=== PATIENT | male | born 1950 | race Caucasian/White ===

== ENCOUNTER 2021-12-30 09:50 | Emergency (ER) | payer OTHER, MEDICARE ==
[~2021-12-30] VITALS: Ht 172.7 cm; Wt 88.5 kg
[2021-12-30] MEDS ORDERED: GUAIFENESIN SUGAR-FREE 100 MG/5 ML UDCUP PO STA (10:28)
[2021-12-30] MEDS ORDERED: DEXAMETHASONE SOD PHOSPHATE 4 MG/ML 1ML VIAL IM STA (10:28)
[2021-12-30] MEDS ORDERED: LORA10TA7 PO (10:36)
[2021-12-30] MEDS ORDERED: FLUT16H NASAL (10:36)
[2021-12-30 10:41] VITALS: BP 157/82
== END 2021-12-30 10:43 | disposition home or self-care (01) ==
LOC: EDH 09:50
DX: J32.9 Chronic sinusitis, unspecified (principal); Z20.822 Contact with and (suspected) exposure to COVID-19
CPT/HCPCS: 99284; 71045; 87635; 87880; 87804 ×2; 96372; J1100; C9803

== ENCOUNTER 2022-01-13 10:09 | Emergency (ER) | payer OTHER ==
[~2022-01-13] VITALS: Ht 167.6 cm; Wt 88.5 kg
[~2022-01-13 10:09] MED LIST: FLUT16H NASAL; LORA10TA7 PO
[2022-01-13 10:58] VITALS: BP 159/85
[2022-01-13] MEDS ORDERED: SOLU-MEDROL 125MG VIAL IVP ONE (11:30)
[2022-01-13] MEDS ORDERED: METH4TAB3 PO (13:34)
== END 2022-01-13 13:49 | disposition home or self-care (01) ==
LOC: EDH 10:09
DX: M17.12 Unilateral primary osteoarthritis, left knee (principal); G89.29 Other chronic pain; Z79.899 Other long term (current) drug therapy; Z98.890 Other specified postprocedural states
CPT/HCPCS: 99283; 96374; 73562; J2930

== ENCOUNTER 2022-05-21 10:52 | Emergency (ER) | payer OTHER ==
[~2022-05-21] VITALS: Ht 172.7 cm; Wt 88.5 kg
[~2022-05-21 10:52] MED LIST changes: +METH4TAB3 PO
[2022-05-21 11:46] LABS: BASOPHILS % (AUTO) 0.9 % (0.0-5.0); EOSINOPHILS % (AUTO) 1.6 % (0.0-8.0); HEMATOCRIT 51.1 % (42-54); LYMPHOCYTES % (AUTO) 22.1 % (21.0-51.0); MEAN CORPUSCULAR HEMOGLOBIN 33.7 pg (27.0-33.0); MEAN CORPUSCULAR HGB CONC 34.1 g/dL (32.0-36.0); MONOCYTES % (AUTO) 7.5 % (3.0-13.0); NEUTROPHILS % (AUTO) 67.4 % (40.0-77.0); PLATELET COUNT (AUTO) 195 K/uL (130-400); RED BLOOD CELL COUNT(AUTO) 5.16 MIL/uL (4.50-6.20); RED CELL DISTRIBUTION WIDTH 11.9 % (11.0-15.5); WHITE BLOOD COUNT (AUTO) 8.1 K/uL (4.8-10.8)
[2022-05-21 12:16] LABS: CREATININE 0.9 mg/dL (0.5-1.5); POTASSIUM 4.1 mmol/L (3.5-5.1)
[2022-05-21 12:20] LABS: ALBUMIN 3.9 g/dL (3.5-5.0); TOTAL PROTEIN, SERUM 7.4 g/dL (6.0-8.3)
[2022-05-21] MEDS ORDERED: 0.9% NACL 500ML IV.SOLN 500 ML IV ONE (13:00)
[2022-05-21 13:13] LABS: APPEARANCE,URINE CLEAR (CLEAR); BILIRUBIN,URINE NEGATIVE (NEGATIVE); COLOR,URINE LIGHT-YELLOW (YELLOW); GLUCOSE, URINE (UA) NEGATIVE (NEGATIVE); KETONES,URINE NEGATIVE (NEGATIVE); LEUKOCYTE ESTERASE ,URINE NEGATIVE Leu/uL (NEGATIVE); NITRATE,URINE NEGATIVE (NEGATIVE); OCCULT BLOOD,URINE NEGATIVE (NEGATIVE); PH,URINE 5.5 (5.0-8.0); PROTEIN,URINE NEGATIVE (NEGATIVE); UROBILINOGEN,URINE 0.2 mg/dL (0.2-1.0)
[2022-05-21 13:17] LABS: AMPHET/METH SCREEN,URINE NEGATIVE (NEGATIVE); BARBITURATE SCREEN, URINE NEGATIVE (NEGATIVE); BENZODIAZEPINES SCREEN,URINE NEGATIVE (NEGATIVE); CANNABINOID SCREEN,URINE NEGATIVE (NEGATIVE); COCAINE SCREEN,URINE NEGATIVE (NEGATIVE); OPIATE SCREEN,URINE NEGATIVE (NEGATIVE); PHENCYCLIDINE SCREEN,URINE NEGATIVE (NEGATIVE)
[2022-05-21] MEDS ORDERED: CLIN-141 PO (13:56)
[2022-05-21] MEDS ORDERED: BACI30OI6 TP (13:56)
[2022-05-21 14:10] VITALS: BP 153/82
== END 2022-05-21 14:12 | disposition home or self-care (01) ==
LOC: EDH 10:52
DX: S80.811A Abrasion, right lower leg, initial encounter (principal); S80.812A Abrasion, left lower leg, initial encounter; M79.662 Pain in left lower leg; M79.661 Pain in right lower leg; R07.89 Other chest pain; R06.02 Shortness of breath; R55 Syncope and collapse; Z79.899 Other long term (current) drug therapy; Z98.890 Other specified postprocedural states
CPT/HCPCS: 99285; 93970; 82550; 84484; 80053; 80305; 85025; 36415; 93005; 81003; J7040; 96360

== ENCOUNTER 2024-05-02 11:21 | Emergency (ER) | payer OTHER ==
[~2024-05-02] VITALS: Ht 172.7 cm; Wt 85.7 kg
[~2024-05-02 11:21] MED LIST changes: +BACI30OI6 TP; +CLIN-141 PO
--- NOTE | 2024-05-02 11:38 | ERN ---
General Chief Complaint: Abscess Stated Complaint: RECTAL ABSCESS Time Seen by MD: : History of Present Illness Initial Comments 73M, hx DM, presents for perianal abscess. Patient reports that he's felt a mass for about a week on the R side of his bottom. Yesterday he developed fever. He reports some drainage. No current fevers or chills. No other symptoms. He reports a history of boils in the area. Allergies: Coded Allergies: No Known Drug Allergies (Unverified Allergy, Unknown, 12/30/21) Home Meds Active Scripts Clindamycin HCl (Clindamycin HCl) 300 Mg Capsule, 1 CAP PO TID for 10 Days, #30 CAP 0 Refills Prov:FITTING,HEATHER GREEN PLUMBER 05/21/22 Bacitracin (Bacitracin) 28.4 Gm Oint...g., 28.4 GM TP TID, #1 TUBE Prov:FITTINGHEATHER 05/21/22 Methylprednisolone (Medrol) 4 Mg Tab.ds.pk, 4 MG PO AD, #1 PACK Prov:EDGARDO KNOX MD 01/13/22 Loratadine (Loratadine) 10 Mg Tablet, 10 MG PO DAILY for 30 Days, #30 TAB Prov:LILIAN TOWNSEND MD 12/30/21 Fluticasone Propionate (Flonase Nasal [place]) 50 Mcg/[place], 50 MCG NASAL BID for 14 Days, #30 SPRAY Prov:LILIAN TOWNSEND MD 12/30/21 Past Medical History Past Medical History: Diabetes-Type II, High Cholesterol, Hypertension Medical History Other: HX OF REOCURRING ABSCESS Past Surgical History: Other Surgical History Other: NECK FUSION Social History Social History: Negative, Lives alone ROS Dictation CONSTITUTIONAL: Fever yesterday, none today HEAD/FACE: No signs of trauma. EENT: No eye pain, no blurred vision, no tearing, no double vision, no ear pain, no ear discharge, no nose pain, no nasal congestion, no throat pain, no throat swelling, no mouth pain. RESPIRATORY: No cough, no orthopnea, no SOB, no stridor, no wheezing. CARDIOVASCULAR: No chest pain, no edema, no palpitations, no syncope. GASTROINTESTINAL/ABDOMINAL: No abdominal pain, no constipation, no diarrhea, no nausea, no vomiting. GENITOURINARY: No abnormal discharge, no dysuria, no frequent urination, no hematuria. No complaints of pain in the genitals. MUSCULOSKELETAL: No back pain, no gout, no joint pain, no joint swelling, no muscle pain, no muscle stiffness, no neck pain. Perirectal pain tenderness INTEGUMENTARY: No change in color, no change in hair/nails, no dryness, no lesion, no lumps, no rash. NEUROLOGICAL/PSYCH: No anxiety, not depressed, no emotional problem, no headache, no numbness, no pre-existing deficit, no history of seizures, no tremors, no weakness. HEMATOLOGIC/LYMPHATIC: Not anemic, no history of blood clots, no apparent bleeding, no bruising, glands not swollen. All Systems Negative, Except as Noted. Physical Exam Physical Exam Dictation VITAL SIGNS: Reviewed. GENERAL APPEARANCE: Alert, oriented x3, no acute distress HEAD AND FACE: Non-traumatic. EYES: PERRL, pink conjunctivas, eyelid no trauma, anterior chamber clear. EARS: Pinnas intact and no signs of trauma or erythema. Ear canals clear and no discharge. TMs no erythema. NOSE: No discharge, no bleeding. OROPHARYNX: Mouth normal, teeth no caries, tongue pink. Pharynx clear, no erythema. Tonsils no exudates, no abscesses noted. Mucous membrane moist. NECK: Supple, non-tender, no thyromegaly, no masses, no JVD, no bruits. BREAST: Deferred. CHEST: No tenderness, no crepitus, no paradoxical movement, no retractions. LUNGS: Clear, well-ventilated, symmetric, no rales, no wheezing, no rhonchi, no stridor, good breath sounds bilaterally. HEART: Regular rate, regular rhythm, no murmur, no gallops. VASCULAR: No peripheral edema. ABDOMEN: Soft, positive bowel sounds, nondistended, no guarding, nontender, no rebound, no masses no hepatomegaly, no splenomegaly, no Guy's sign, no hernias. RECTAL: Obvious perirectal abscesses described in the MDM GENITAL: Deferred. NEUROLOGICAL: Normal speech, gross motor function intact, gross sensory function intact. MUSCULOSKELETAL: Neck nontender, full range of motion, back nontender, full range of motion. EXTREMITIES: Nontender, full range of motion. SKIN: Color pink, dry, no turgor, no rash, no lacerations, no abrasions, no contusions. LYMPHATICS: Deferred. Results Laboratory and Microbiology Lab and Micro Result Laboratory Tests Test 05/02/24 11:49 White Blood Count 13.0 K/uL (4.8-10.8) H Red Blood Count 4.47 MIL/uL (4.50-6.20) L Hemoglobin 14.7 g/dL (14.0-18.0) Hematocrit 43.0 % (42-54) Mean Corpuscular Volume 96.2 fL (79-99) Mean Corpuscular Hemoglobin 32.9 pg (27.0-33.0) Mean Corpuscular Hemoglobin Concent 34.2 g/dL (32.0-36.0) Red Cell Distribution Width 12.4 % (11.0-15.5) Platelet Count 189 K/uL (130-400) Mean Platelet Volume 11.4 fL (7.5-10.5) H Immature Granulocyte % (Auto) 0.5 % (0-1) Neutrophils (%) (Auto) 77.1 % (40.0-77.0) H Lymphocytes (%) (Auto) 14.3 % (21.0-51.0) L Monocytes (%) (Auto) 6.6 % (3.0-13.0) Eosinophils (%) (Auto) 1.0 % (0.0-8.0) Basophils (%) (Auto) 0.5 % (0.0-5.0) Neutrophils # (Auto) 10.0 K/uL (1.8-7.7) H Lymphocytes # (Auto) 1.9 K/uL (1.0-4.8) Monocytes # (Auto) 0.9 K/uL (0.1-1.0) Eosinophils # (Auto) 0.13 K/uL (0.00-0.70) Basophils # (Auto) 0.06 K/uL (0.00-0.20) Absolute Immature Granulocyte (auto 0.07 K/uL (0-1) Nucleated Red Blood Cells 0.0 % (0.0-0.19) Sodium Level 135 mmol/L (136-145) L Potassium Level 3.6 mmol/L (3.5-5.1) Chloride Level 100 mmol/L (101-111) L Carbon Dioxide Level 31 mmol/L (21-32) Blood Urea Nitrogen 14 mg/dL (7-18) Creatinine 0.9 mg/dL (0.5-1.3) Glomerular Filtration Rate Calc 90 mL/min (>90) Random Glucose 147 mg/dL (70-105) H Lactic Acid Level 1.6 mmol/L (0.8-2.5) Total Calcium 9.4 mg/dL (8.5-10.1) C-Reactive Protein, Quantitative 116.90 mg/L (0.5-3.0) H Procalcitonin < 0.05 ng/mL (0.05-0.5) L ED Course Orders Procedure Category Date Status Time Cbc With Differential LAB 05/02/24 Complete 11:33 Basic Metabolic Panel LAB 05/02/24 Complete 11:33 Lactic Acid LAB 05/02/24 Complete 11:33 Procalcitonin LAB 05/02/24 Complete 11:33 Crp Quantitative LAB 05/02/24 Complete 11:33 Blood Cult KATHIE 05/02/24 In Process 11:33 Ct Pelvis W/Contrast CT 05/02/24 Resulted 11:33 Iohexol (Omnipaque) PHA 05/02/24 Complete 12:12 Current Medications Medications (Trade) Dose Ordered Sig/Rosalia Route PRN Reason Start Time Stop Time Status Last Admin Dose Admin Iohexol (Omnipaque) 75 ml STK-MED ONCE IV 05/02/24 12:12 05/02/24 12:13 DC Vital Signs Date Time Temp Pulse Resp B/P (MAP) Pulse Ox O2 Delivery O2 Flow Rate FiO2 05/02/24 11:38 98.2 77 16 152/79 96 Room Air* 0 21 05/02/24 11:22 98.2 77 16 152/79 96 Room Air 0 DX & DISP Disposition: Discharge Departure Impression: Primary Impression: Perianal abscess Condition: Stable Scripts Amoxicillin/Potassium Clav (Amox Tr-K Clv 875-125 mg Tab) 875 Mg-125 Mg Tablet 1 TAB PO BID for 10 Days, #20 TAB 0 Refills Prov: LORENA YARBROUGH DO 05/02/24 Additional Instructions: You had a 4 cm x 1 cm perianal abscess. It was drained here in the ER. There is a 1 cm laceration/opening over the abscess. This may leak for the next few days. This is normal. Keep the wound clean with soap and water. I recommend Sitz baths (Epson salt baths) a couple of times per day. I have prescribed Augmentin, which is an antibiotic. Take as prescribed. You can use [id number] pain medicine such as ibuprofen (800 mg) or Tylenol (1000 mg) as needed. As we discussed, I recommend a wound check in 72 hours. You can return to the emergency department or go to her primary care provider. Please return to the emergency department sooner if you have any concerns. Referrals: SELF,REFERRAL (PCP) LORENA YARBROUGH DO May 02, 2024 11:38
[2024-05-02 11:56] LABS: BASOPHILS # (AUTO) 0.06 K/uL (0.00-0.20); BASOPHILS % (AUTO) 0.5 % (0.0-5.0); EOSINOPHILS # (AUTO) 0.13 K/uL (0.00-0.70); IMMATURE GRANULOCYTE ABSOLUTE 0.07 K/uL (0-1); LYMPHOCYTES # (AUTO) 1.9 K/uL (1.0-4.8); LYMPHOCYTES % (AUTO) 14.3 % (21.0-51.0); MEAN CORPUSCULAR HEMOGLOBIN 32.9 pg (27.0-33.0); MEAN CORPUSCULAR HGB CONC 34.2 g/dL (32.0-36.0); MEAN CORPUSCULAR VOLUME 96.2 fL (79-99); MONOCYTES # (AUTO) 0.9 K/uL (0.1-1.0); MONOCYTES % (AUTO) 6.6 % (3.0-13.0); NEUTROPHILS % (AUTO) 77.1 % (40.0-77.0); PLATELET COUNT (AUTO) 189 K/uL (130-400); RED BLOOD CELL COUNT(AUTO) 4.47 MIL/uL (4.50-6.20); RED CELL DISTRIBUTION WIDTH 12.4 % (11.0-15.5)
[2024-05-02 12:05] LABS: CREATININE 0.9 mg/dL (0.5-1.3); POTASSIUM 3.6 mmol/L (3.5-5.1)
[2024-05-02] MEDS ORDERED: IOHEXOL-350 75 ML VIAL IV ONE (12:12)
--- NOTE | 2024-05-02 12:44 | HMCIMG ---
Exam Type: CT pelvis without contrast Clinical Information: perianal/perirectal abscess Findings: Right perirectal abscesses 4.4 x 1.6 cm. The visualized pelvic bowel loops are unremarkable. No free fluid or fluid collections of the pelvis are seen otherwise. The pelvic viscera are normal in CT appearance. The perirectal fat planes are otherwise clear. The visualized osseous elements are normal for the patient's age. IMPRESSION: Right perirectal abscesses 4.4 x 1.6 cm.
[2024-05-02] MEDS ORDERED: AMOX1TAB16 PO (13:05)
[2024-05-02 13:13] VITALS: BP 135/72; PULSE 72; RESP 16; TEMP 98.2; O2SAT 96
== END 2024-05-02 13:14 | disposition home or self-care (01) ==
LOC: EDH 11:21
DX: K61.2 Anorectal abscess (principal); E11.9 Type 2 diabetes mellitus without complications; E78.00 Pure hypercholesterolemia, unspecified; I10 Essential (primary) hypertension; Z79.899 Other long term (current) drug therapy
CPT/HCPCS: 99285; 72193; 80048; 85025; 87040 ×2; 83605; 86140; 36415; 84145; Q9967